=== PATIENT | male | born 1950 | race Two or more races ===

== ENCOUNTER 2022-03-12 22:30 | Emergency (ER) | payer MEDICARE, MEDICAID ==
[~2022-03-12] VITALS: Ht 162.6 cm; Wt 174.0 kg
[2022-03-12 22:57] VITALS: BP 120/78
== END 2022-03-12 23:30 | disposition left against medical advice (07) ==
LOC: ER 22:30
DX: M79.642 Pain in left hand (principal); Z53.21 Procedure and treatment not carried out due to patient leaving prior to being seen by health care provider
CPT/HCPCS: 80053

== ENCOUNTER 2022-05-13 23:36 | Emergency (ER) | payer OTHER, MEDICAID ==
[~2022-05-13] VITALS: Ht 175.3 cm; Wt 79.5 kg
[2022-05-14 00:07] VITALS: BP 142/72
== END 2022-05-14 05:16 | disposition left against medical advice (07) ==
LOC: ER 23:36
DX: S40.862A Insect bite (nonvenomous) of left upper arm, initial encounter (principal); S40.861A Insect bite (nonvenomous) of right upper arm, initial encounter; S80.862A Insect bite (nonvenomous), left lower leg, initial encounter; S80.861A Insect bite (nonvenomous), right lower leg, initial encounter; Z53.21 Procedure and treatment not carried out due to patient leaving prior to being seen by health care provider; W57.XXXA Bitten or stung by nonvenomous insect and other nonvenomous arthropods, initial encounter; Y93.89 Activity, other specified; Y92.89 Other specified places as the place of occurrence of the external cause; Y99.8 Other external cause status